=== PATIENT | male | born 1975 | race African-American/Black ===

== ENCOUNTER 2022-04-13 16:27 | Emergency (ER) | payer SELFPAY ==
[~2022-04-13] VITALS: Ht 182.9 cm; Wt 155.0 kg
[2022-04-13 17:01] VITALS: BP 148/90
== END 2022-04-13 17:11 | disposition short-term general hospital (02) ==
LOC: EDBD 16:27 → ER 16:27
DX: S31.139A Puncture wound of abdominal wall without foreign body, unspecified quadrant without penetration into peritoneal cavity, initial encounter (principal); S61.432A Puncture wound without foreign body of left hand, initial encounter; W34.00XA Accidental discharge from unspecified firearms or gun, initial encounter; Y93.89 Activity, other specified; Y92.89 Other specified places as the place of occurrence of the external cause; Y99.8 Other external cause status
CPT/HCPCS: 36415; 71045; 86850; 86900; 86920; 99291; P9016